=== PATIENT | female | born 1945 | race Caucasian/White ===

== ENCOUNTER 2018-02-24 14:18 | Day surgery (SDC) | payer MEDICARE, OTHER ==
[~2018-02-24 14:18] MED LIST: Lactated Ringers 1,000 ML IV SCH; Sodium Chloride 0.9% 10 ML Syringe FLUSH PRN
[2018-02-24] MEDS ORDERED: Midazolam 1 MG/ML 2 ML SDV ONE ×2 (15:29→15:35)
[2018-02-24] MEDS ORDERED: fentaNYL 100 MCG/2 ML SDV ONE ×2 (15:29→15:35)
[2018-02-24] MEDS ORDERED: Propofol 200 MG/20 ML SDV ONE ×2 (15:29→15:35)
--- NOTE | 2018-02-24 15:34 | PCM.PN ---
- General Info Date of Service: 02/24/18 - Review of Systems Systems Review Comment:: . 72-year-old female referred for EGD. She has a history of dysphasia over the last 2 weeks. She also has a long-standing history of acid reflux. She currently takes only Rolaids although in the past has taken Protonix which gave her much better control of her symptoms. She is medically stable to proceed today with no significant recent changes in her health status. Her recent history and physical is reviewed. I discussed the proposed upper endoscopy with the patient. She agrees to proceed accepting risks. We also discussed the possible need for balloon dilation of the esophagus and she agrees to this if necessary. - Patient Data Vitals - Most Recent: Last Vital Signs Temp 96.8 F 02/24/18 15:13 Pulse 75 02/24/18 15:13 Resp 20 02/24/18 15:13 BP 150/73 H 02/24/18 15:13 Pulse Ox 96 02/24/18 15:13 Weight - Most Recent: 98.883 kg Med Orders - Current: Current Medications Lactated Ringer's (Ringers, Lactated) 1,000 mls @ 125 mls/hr IV ASDIRECTED LOPEZ Last Admin: 02/24/18 15:08 Dose: 125 mls/hr Sodium Chloride (Saline Flush) 10 ml FLUSH ASDIRECTED PRN PRN Reason: Keep Vein Open - Problem List Review Problem List Initiated/Reviewed/Updated: Yes - Assessment Assessment:: Dysphasia - Plan Plan:: EGD
[2018-02-24] MEDS ORDERED: Ondansetron 4 MG/2 ML SDV ONE (15:35)
--- NOTE | 2018-02-24 16:09 | PCM.OPNOTE ---
- General Post-Op/Procedure Note Date of Surgery/Procedure: 02/24/18 Operative Procedure(s): EGD with Biopsy Findings: Large hiatal hernia Severe Reflux esophagitis with mid esophageal stricture-Suspect Avalos's Esophagus Pre Op Diagnosis: Dysphagia Post-Op Diagnosis: Hiatal hernia. Reflux esophagitis with esophageal stricture. Suspect Avalos's esophagus Anesthesia Technique: MAC Primary Surgeon: Epi Topete Pathology: Biopsies of esophagus Output, Urine Amount: 0 EBL in mLs: 5 Complications: None Condition: Good Free Text/Narrative:: Intake & Output 02/24/18 02/24/18 02/24/18 06:59 14:59 22:59 Intake Total 500 Balance 500
[2018-02-24 17:00] VITALS: BP 104/67
--- NOTE | 2018-02-25 08:10 | OR ---
Date of Procedure: 02/24/2018 PREOPERATIVE DIAGNOSIS: Dysphagia. POSTOPERATIVE DIAGNOSES: 1. Large hiatal hernia. 2. Severe reflux esophagitis with midesophageal stricture. 3. Suspect Avalos esophagus. OPERATION PERFORMED: Esophagogastroduodenoscopy with biopsy. INDICATIONS FOR SURGERY: This 72-year-old female has been having increasing symptoms of dysphagia over the past 2 weeks. She is referred for upper endoscopy. FINDINGS: The patient was noted to have severe reflux esophagitis with inflammation including ulceration and exudate in the midesophagus. There was also a moderately tight esophageal stricture in this region, although the scope was able to be passed through this stricture. The patient has a large hiatal hernia with Z-line estimated at 30 cm and the apex of the inflammation at 18 cm. Findings were consistent with a long segment Avalos esophagus. The stomach and duodenum otherwise appeared normal. DESCRIPTION OF PROCEDURE: The patient was taken to the operating room. She was given intravenous sedation, and her throat was topically anesthetized. The esophagus was intubated with the Olympus gastroscope. This was carefully advanced under direct visualization into the upper stomach. The inflammation was noted and stricture was identified. Carefully, the scope was advanced through this stricture with only minimal resistance. The scope was then carefully advanced down through the esophagus, stomach, and into the duodenum, where examination to the 3rd portion was performed. The duodenum was fully examined and then full examination of the stomach including retroflexed examination of the fundus was performed. The distal esophagus was carefully examined with findings as noted above. Biopsies were taken at various levels through the esophagus and in order to evaluate for possible Avalos esophagus and rule out dysplasia. Because of the intense inflammation in the area, dilation of the stricture was not performed in order to limit any chance of esophageal injury. The scope was removed and the patient was taken from the operating room in satisfactory condition. ESTIMATED BLOOD LOSS: 5 mL. COMPLICATIONS: None. PROGNOSIS: Good. TE Topete MD /[id number]
== END 2018-02-24 17:33 | disposition home or self-care (01) ==
LOC: LL.SDS 14:18
PROVIDERS: ATTEND Surgery
DX: K22.70 Barrett's esophagus without dysplasia (principal); K22.2 Esophageal obstruction; K44.9 Diaphragmatic hernia without obstruction or gangrene; K21.0 Gastro-esophageal reflux disease with esophagitis; I11.0 Hypertensive heart disease with heart failure; I50.9 Heart failure, unspecified; J44.9 Chronic obstructive pulmonary disease, unspecified; Z99.81 Dependence on supplemental oxygen; E66.9 Obesity, unspecified; Z87.891 Personal history of nicotine dependence; Z79.899 Other long term (current) drug therapy; Z88.0 Allergy status to penicillin; Z88.1 Allergy status to other antibiotic agents; Z91.040 Latex allergy status; Z91.048 Other nonmedicinal substance allergy status
CPT/HCPCS: 00731; 88305; J2250; J2405; J2704; J3010; J7120

== ENCOUNTER 2019-08-10 12:29 | Day surgery (SDC) | payer MEDICARE, OTHER ==
[~2019-08-10 12:29] MED LIST changes: -Lactated Ringers 1,000 ML IV SCH; +Midazolam 1 MG/ML 2 ML SDV ONE; +Propofol 200 MG/20 ML SDV ONE
[2019-08-10] MEDS: Lactated Ringers 1,000 ML IV SCH (13:12)
[2019-08-10] MEDS: Albuterol/Ipratropium 3.0-0.5 MG/3 ML Neb Soln NEB ONE (14:29)
--- NOTE | 2019-08-10 14:32 | PCM.PN ---
- General Info Date of Service: 08/10/19 - Review of Systems Systems Review Comment:: 74-year-old female with recently diagnosed long segment Avalos's esophagus comes today for follow-up upper endoscopy. She was noted to have a stricture at the last time of her EGD. She admits that she has not been taking her medication her acid blocking medication faithfully. The proposed upper endoscopy is discussed with the patient. Possible dilation is also reviewed. She agrees to proceed accepting risks. - Patient Data Vitals - Most Recent: Last Vital Signs Temp 97.6 F 08/10/19 12:48 Pulse 95 08/10/19 12:48 Resp 20 08/10/19 12:48 BP 125/77 08/10/19 12:48 Pulse Ox 93 L 08/10/19 12:48 Weight - Most Recent: 111.13 kg Med Orders - Current: Current Medications Lactated Ringer's (Ringers, Lactated) 1,000 mls @ 125 mls/hr IV ASDIRECTED LOPEZ Last Admin: 08/10/19 13:12 Dose: 125 mls/hr Sodium Chloride (Saline Flush) 10 ml FLUSH ASDIRECTED PRN PRN Reason: Keep Vein Open Discontinued Medications Albuterol/Ipratropium (Duoneb 3.0-0.5 Mg/3 Ml) 3 ml NEB ONETIME ONE Stop: 08/10/19 14:19 Midazolam HCl (Versed 1 Mg/Ml) Confirm Administered Dose 2 mg .ROUTE .STK-MED ONE Stop: 08/10/19 08:33 Propofol (Diprivan 20 Ml) Confirm Administered Dose 200 mg .ROUTE .STK-MED ONE Stop: 08/10/19 08:34 - Problem List Review Problem List Initiated/Reviewed/Updated: Yes - Assessment Assessment:: Avalos's Esophagus with dysphagia - Plan Plan:: EGD with possible dilation
[2019-08-10] MEDS ORDERED: Propofol 200 MG/20 ML SDV ONE (14:54)
[2019-08-10] MEDS ORDERED: Midazolam 1 MG/ML 2 ML SDV ONE (14:54)
--- NOTE | 2019-08-10 15:01 | PCM.OPNOTE ---
- General Post-Op/Procedure Note Date of Surgery/Procedure: 08/10/19 Operative Procedure(s): EGD with balloon dilation of esophagus Findings: hiatal hernia with long segment of Avalos's Esophagus and upper esophageal stricture Pre Op Diagnosis: Avalos's Esophagus. Dysphagia Post-Op Diagnosis: Hiatal Hernia. Avalos's esophagus. Esophageal stricture Anesthesia Technique: MAC Primary Surgeon: Epi Topete Pathology: none EBL in mLs: 5 Complications: None Condition: Good
[2019-08-10 15:29] VITALS: BP 115/60; PULSE 86
--- NOTE | 2019-08-10 21:30 | OR ---
Date of Procedure: 08/10/2019 PREOPERATIVE DIAGNOSIS: Dysphagia with history of Avalos's esophagus. POSTOPERATIVE DIAGNOSES: Hiatal hernia, Avalos's esophagus, and upper esophageal stricture. OPERATION PERFORMED: Esophagogastroduodenoscopy with balloon dilation of esophageal stricture. INDICATIONS FOR SURGERY: This 74-year-old female has a known history of Avalos's esophagus and has been having symptoms of dysphagia. FINDINGS: This patient has a long segment of Avalos's esophagus, which extends from the Z-line at the 30 cm level up to approximately the 24 cm level where a moderate-sized stricture is noted in the esophagus. The patient also has a large hiatal hernia. No nodularity is seen in the area of the Avalos's esophagus. DESCRIPTION OF PROCEDURE: The patient was taken to the operating room. She was given intravenous sedation and with her in the left lateral decubitus position, the Olympus gastroscope was advanced through the mouth guard into the patient's oropharynx. The scope was then carefully advanced down through the cricopharyngeus under direct visualization and then advanced through the esophagus where it passed through the stricture and into the stomach and duodenum where examination to the third portion was performed. Examination of the duodenum was performed and also of the stomach including retroflexed examination of the fundus. With the patient's symptoms, dilation of her stricture is felt indicated and so through the scope a dilating balloon was selected with a maximum dilation diameter of 54-Armenian, it was 8 x 18 cm balloon. This was then advanced and the stricture was sequentially dilated first to 1.8 atmospheres and then to 2.6 atmospheres. Full dilation was not performed larger than this in order to reduce the risk of esophageal injury. The balloon was then removed and inspection of the area of stricturing showed improvement. Moderate amount of heme was achieved with the dilation procedure, but no indication of esophageal injury was identified. The patient tolerated the procedure well. The scope was removed and she left the operating room in satisfactory condition. ESTIMATED BLOOD LOSS: 5 mL. COMPLICATIONS: None. PROGNOSIS: Good. TE Topete MD /[id number]
== END 2019-08-10 16:00 | disposition home or self-care (01) ==
LOC: LL.SDS 12:29
PROVIDERS: ATTEND Surgery
DX: K22.2 Esophageal obstruction (principal); K22.70 Barrett's esophagus without dysplasia; K44.9 Diaphragmatic hernia without obstruction or gangrene; K21.9 Gastro-esophageal reflux disease without esophagitis; I11.0 Hypertensive heart disease with heart failure; I50.9 Heart failure, unspecified; J44.9 Chronic obstructive pulmonary disease, unspecified; Z88.0 Allergy status to penicillin; Z91.040 Latex allergy status; Z91.048 Other nonmedicinal substance allergy status; Z99.81 Dependence on supplemental oxygen; Z79.899 Other long term (current) drug therapy
CPT/HCPCS: 00731; J2250; J2704; J7120; J7620-GY

== ENCOUNTER 2020-01-25 09:06 | Day surgery (SDC) | payer MEDICARE, OTHER ==
[~2020-01-25 09:06] MED LIST changes: -Midazolam 1 MG/ML 2 ML SDV ONE; -Sodium Chloride 0.9% 10 ML Syringe FLUSH PRN
[2020-01-25] MEDS ORDERED: Sodium Chloride 0.9% 10 ML Syringe FLUSH PRN (09:15)
[2020-01-25] MEDS ORDERED: Lactated Ringers 1,000 ML IV SCH (09:15)
[2020-01-25] MEDS ORDERED: Propofol 200 MG/20 ML SDV ONE ×2 (10:26→11:22)
[2020-01-25] MEDS ORDERED: Lidocaine 2% 100 MG/5 ML Syringe ONE (10:26)
--- NOTE | 2020-01-25 10:29 | PCM.PN ---
- General Info Date of Service: 01/25/20 - Review of Systems Systems Review Comment:: 74-year-old female with history of Avalos's esophagus here for surveillance upper endoscopy. She is also scheduled for screening colonoscopy today. She is medically stable to proceed today. Her recent history and physical is reviewed and no significant changes are noted. I have discussed the proposed upper and lower endoscopy with the patient. She understands indications and risks and agrees to proceed. - Patient Data Vitals - Most Recent: Last Vital Signs Temp 97.5 F 01/25/20 10:18 Pulse 91 01/25/20 10:18 Resp 18 01/25/20 10:18 BP 120/64 01/25/20 10:18 Pulse Ox 91 L 01/25/20 10:18 Weight - Most Recent: 99.79 kg Med Orders - Current: Current Medications Lactated Ringer's (Ringers, Lactated) 1,000 mls @ 125 mls/hr IV ASDIRECTED LOPEZ Last Admin: 01/25/20 10:07 Dose: 125 mls/hr Sodium Chloride (Saline Flush) 10 ml FLUSH ASDIRECTED PRN PRN Reason: Keep Vein Open Discontinued Medications Propofol (Diprivan 20 Ml) Confirm Administered Dose 400 mg .ROUTE .STK-MED ONE Stop: 01/25/20 08:47 Sepsis Event Note - Focused Exam Vital Signs: Vital Signs Temp Pulse Resp BP Pulse Ox 01/25/20 10:18 97.5 F 91 18 120/64 91 L Date Exam was Performed: 01/25/20 Time Exam was Performed: 10:28 - Problem List Review Problem List Initiated/Reviewed/Updated: Yes - My Orders Last 24 Hours: My Active Orders 01/25/20 09:15 Patient Status [ADT] Routine Peripheral IV Care [RC] . DIRECTED Verify Patient Consent Obtain [RC] ASDIRECTED Lactated Ringers [Ringers, Lactated] 1,000 ml IV ASDIRECTED Sodium Chloride 0.9% [Saline Flush] 10 ml FLUSH ASDIRECTED PRN Peripheral IV Insertion Adult [OM.PC] Routine - Assessment Assessment:: history of Avalos's esophagus Colon cancer screening - Plan Plan:: EGD and colonoscopy
--- NOTE | 2020-01-25 11:24 | PCM.OPNOTE ---
- General Post-Op/Procedure Note Date of Surgery/Procedure: 01/25/20 Operative Procedure(s): EGD with Biopsy and Colonoscopy with Polypectomy Findings: Long Segment Avalos's Esophagus with inflammation but without mass Multiple colon polyps Pre Op Diagnosis: History of Avalos's Esophagus. Colon Cancer Screening Post-Op Diagnosis: Avalos's Esophagus. Hiatal Hernia. Colon Polyps Anesthesia Technique: MAC Primary Surgeon: Epi Topete Pathology: Biopsies of Avalos's Esophagus Colon Polyps EBL in mLs: 5 Complications: None Condition: Good
--- NOTE | 2020-01-25 13:09 | OR ---
Date of Procedure: 01/25/2020 PREOPERATIVE DIAGNOSIS: History of Avalos's esophagus and colon cancer screening. POSTOPERATIVE DIAGNOSIS: Long segment Avalos's esophagus, hiatal hernia, and colon polyps. OPERATION PERFORMED: 1. Esophagogastroduodenoscopy with biopsy. 2. Colonoscopy with polypectomy. INDICATIONS FOR SURGERY: This 74-year-old female has a known history of Avalos's esophagus and comes today for surveillance upper endoscopy. She also comes for screening colonoscopy. FINDINGS: On upper endoscopy, the patient has what appears to be long segment Avalos's esophagus. Visible esophageal changes consistent with this are noted from approximately the 32 to the 25 cm level. There is visible hyperemia and some inflammation in this area, although no mass effect or exudate is noted. The esophagus above this level appears normal. No stenosis is identified on today's exam. The patient does have a moderate-sized hiatal hernia approximately 5 cm in length. The mucosa here and the rest of the stomach as well as in the duodenum appears normal. On colonoscopy, the patient has 3 polyps; a sessile 1-cm polyp in the sigmoid colon 35 cm from the anal verge, a 7- mm sessile polyp in the transverse colon, and a 5-mm sessile polyp in the cecum. The colon otherwise appears normal. DESCRIPTION OF PROCEDURE: The patient was taken to the operating room. She was given intravenous sedation, and with her in the left lateral decubitus position, the Olympus gastroscope was advanced into the mouth through a mouth guard. The scope was carefully advanced down into the esophagus and then advanced through the esophagus, stomach and into the duodenum, where examination to the third portion was performed. After carefully examining the duodenum, the scope was withdrawn back into the stomach where full examination including retroflexed examination of the fundus was performed. The distal esophagus was examined with findings as described above. Biopsies were taken at multiple levels through the area of the Avalos's esophagus to rule out any dysplasia. The examination was then completed and the scope was removed. Attention was turned to colonoscopy. Digital rectal exam was performed showing no rectal masses. The Olympus colonoscope was inserted into the rectum. Retroflexed examination of the rectal canal was performed. The scope was then carefully advanced under direct visualization through the entire length of the colon until the cecum was reached. In the cecum, the above-described cecal polyp was identified. This was removed with a cautery snare and retrieved into a polyp trap. The cecum was then carefully examined and then the scope was withdrawn, sequentially re-examining the colonic segments. During insertion and withdrawal of the scope, the other above described polyps were identified, and as they were noted, they were removed with cautery snare and both retrieved. After the colon and rectum had been completely examined, and with no sign of bleeding or any other complication, the scope was removed and the patient was taken from the operating room in satisfactory condition. ESTIMATED BLOOD LOSS: 5 mL. COMPLICATIONS: None. PROGNOSIS: Good. TE Topete MD /[id number]
[2020-01-25 15:22] VITALS: BP 107/62; PULSE 73
== END 2020-01-25 12:25 | disposition home or self-care (01) ==
LOC: LL.SDS 09:06
PROVIDERS: ATTEND Surgery
DX: Z12.11 Encounter for screening for malignant neoplasm of colon (principal); K22.70 Barrett's esophagus without dysplasia; D12.0 Benign neoplasm of cecum; D12.3 Benign neoplasm of transverse colon; K44.9 Diaphragmatic hernia without obstruction or gangrene; J44.9 Chronic obstructive pulmonary disease, unspecified; I10 Essential (primary) hypertension; Z79.899 Other long term (current) drug therapy; Z88.0 Allergy status to penicillin; Z88.8 Allergy status to other drugs, medicaments and biological substances; Z91.040 Latex allergy status; Z87.891 Personal history of nicotine dependence
CPT/HCPCS: 88305; J2001; J2704; J7120

== ENCOUNTER 2021-10-30 17:23 | Inpatient (IN) | payer MEDICARE, OTHER ==
[2021-10-30] MEDS ORDERED: Benzonatate 100 MG Cap PO PRN (18:06)
[2021-10-30] MEDS ORDERED: Ondansetron 4 MG Tab.DIS PO PRN (18:09)
[2021-10-30] MEDS ORDERED: Acetaminophen 325 MG Tab PO PRN (18:09)
[2021-10-30] MEDS ORDERED: Loperamide 2 MG Tab PO PRN (18:31)
--- NOTE | 2021-10-30 18:32 | PCM.HP.2 ---
H&P History of Present Illness - General Date of Service: 10/30/21 Admit Problem/Dx: 1)COVID 19 2)Hypoxemia Source of Information: Patient - History of Present Illness Initial Comments - Free Text/Narative: Estee is a 76 y/o female who had contacted the [facility] today and Janie Lr PA-C had ordered outpatient COVID testing. Her test came back positive and she was sent to the hospital by her PCP for MAB infusion. On arrival to the hospital, she was weak and very SOB, nursing reported that her sat was 79% on RA. Patient reports being sick for a week with mild cough and diarrhea. The diarrhea has actually been more of an issue and she has been having multiple stools every day for the last 7 days. No fever. She does have home oxygen that uses prn and only at 2 liters. She has not been using that at home. Her also tested positive today for COVID. - Related Data Allergies/Adverse Reactions: Allergies Allergy/AdvReac Type Severity Reaction Status Date / Time amoxicillin Allergy Anaphylactic Verified 10/30/21 17:51 Shock aspirin Allergy GI Verified 10/30/21 17:51 Intolerance/Diarrhea cephalexin monohydrate Allergy Hives Verified 10/30/21 17:51 [From Keflex] erythromycin base Allergy Rash Verified 10/30/21 17:51 Latex, Natural Rubber Allergy Rash Verified 10/30/21 17:51 Penicillins Allergy Anaphylactic Verified 10/30/21 17:51 Shock sulfamethoxazole Allergy Rash Verified 10/30/21 17:51 [From Bactrim] trimethoprim [From Bactrim] Allergy Rash Verified 10/30/21 17:51 bandaids Allergy Itching Uncoded 10/30/21 17:51 tape Allergy Rash Uncoded 10/30/21 17:51 Home Medications: Home Meds Furosemide 40 mg PO DAILY 04/21/16 [History] Lisinopril 2.5 mg PO DAILY 04/21/16 [History] Metoprolol Succinate [Toprol XL] 12.5 mg PO BEDTIME 04/21/16 [History] Albuterol/Ipratropium [DuoNeb 3.0-0.5 MG/3 ML] 3 ml INH BID 02/23/18 [History] Arformoterol [Brovana] 15 mcg INH BID 02/23/18 [History] Omeprazole 40 mg PO DAILY 08/10/19 [History] Benzonatate [Tessalon Perle] 200 mg PO BID PRN 01/25/20 [History] Indomethacin [Indocin] 50 mg PO TID PRN 01/25/20 [History] Potassium Chloride [Klor-Con 10] 20 meq PO BID 01/25/20 [History] Promethazine HCl/Codeine [Prometh-Codein 6.25-10 mg/5 ml] 5 ml PO Q4H PRN 01/25/20 [History] Past Medical History HEENT History: Reports: Cataract, Impaired Vision Other HEENT History: has glasses Cardiovascular History: Reports: Heart Failure, Hypertension Respiratory History: Reports: COPD, Other (See Below) Other Respiratory History: home O2 use Gastrointestinal History: Reports: GERD Other Gastrointestinal History: Severe reflux esophagitis. mild esophageal stricture. Large hiatal hernia. Suspect Avalos's esophagus Genitourinary History: Reports: None [employer] History: Reports: Musculoskeletal History: Reports: Arthritis Neurological History: Reports: None Psychiatric History: Reports: None Endocrine/Metabolic History: Reports: Obesity/BMI 30+ Hematologic History: Reports: None Immunologic History: Reports: None Oncologic (Cancer) History: Reports: None Dermatologic History: Reports: None - Past Surgical History GI Surgical History: Reports: EGD, Esophageal Dilatation Social & Family History - Family History Family Medical History: No Pertinent Family History - Caffeine Use Caffeine Use: Reports: None H&P Review of Systems - Review of Systems: Review Of Systems: See Below General: Reports: Malaise, Weakness, Fatigue HEENT: Reports: No Symptoms Pulmonary: Reports: Shortness of Breath, Cough Cardiovascular: Reports: No Symptoms Gastrointestinal: Reports: Diarrhea, Nausea Genitourinary: Reports: No Symptoms Musculoskeletal: Reports: No Symptoms Skin: Reports: No Symptoms Psychiatric: Reports: No Symptoms Neurological: Reports: No Symptoms Hematologic/Lymphatic: Reports: No Symptoms Immunologic: Reports: No Symptoms Exam - Exam Exam: See Below - Exam Quality Assessment: Supplemental Oxygen General: Alert, Oriented (Elderly female, looks better now that she is sitting on the bed and has oxygen on.) HEENT: Conjunctiva Clear, Hearing Intact, Mucosa Moist & [place], Nares Patent, Posterior Pharynx Clear Neck: Supple, Trachea Midline Lungs: Normal Respiratory Effort, Decreased Breath Sounds, Crackles (Scattered crackles noted in the bases) Cardiovascular: Regular Rate, Regular Rhythm, Normal S1, Normal S2 GI/Abdominal Exam: Normal Bowel Sounds, Soft, Non-Tender (Female) Exam: Deferred Rectal (Female) Exam: Deferred Back Exam: Normal Inspection Extremities: Normal Inspection, Normal Range of Motion, No Pedal Edema, Normal Capillary Refill Skin: Warm, Dry, Intact Neurological: Cranial Nerves Intact Neuro Extensive - Mental Status: Alert, Oriented x3, Normal Mood/Affect, Normal Cognition, Memory Intact Neuro Extensive - Motor, Sensory, Reflexes: CN II-XII Intact, Normal Gait - Patient Data Result Diagrams: 10/30/21 18:01 Imaging Impressions Last 24 hrs: CXR=note bilateral lower lobe consolidations developing (See final report) #1 Interpretation EKG Date: 10/30/21 Time: 19:10 Rhythm: NSR Rate (Beats/Min): 73 [place]: Normal P-Wave: Present QRS: Normal ST-T: Normal QT: Normal EKG Interpretation Comments: NSR - Problem List (1) COVID-19 SNOMED Code(s): 894606134 ICD Code: U07.1 - COVID-19 Status: Acute Current Visit: Yes Problem Details: +COVID test today, Day #7 of sx for her. Remdesivir ordered. Also started Lovenox and Decadron. Will continue her Brovana, but increase her Duonebs to q 4 hr. Blood Cx ordered. Lactic Acid neg, AST=43 most likely elevated due to COVID. CRP=5.2. (2) COPD (chronic obstructive pulmonary disease) SNOMED Code(s): 50938073 ICD Code: J44.9 - CHRONIC OBSTRUCTIVE PULMONARY DISEASE, UNSPECIFIED Status: Chronic Priority: High Current Visit: No Problem Details: Has home oxygen for prn use, but has not required it continuously Currently on 4 liters of oxygen to maintain sats. Qualifiers: COPD type: unspecified COPD Qualified Code(s): J44.9 - Chronic obstructive pulmonary disease, unspecified (3) Hypertension SNOMED Code(s): 55512034 ICD Code: I10 - ESSENTIAL (PRIMARY) HYPERTENSION Status: Chronic Priority: Medium Current Visit: No Problem Details: Continue Metoprolol and Lisinopril. Will monitor BPs. (4) Diarrhea due to COVID-19 SNOMED Code(s): 211456832 ICD Code: U07.1 - COVID-19; A08.39 - OTHER VIRAL ENTERITIS Status: Acute Current Visit: Yes Problem Details: Will monitor. Immodium ordered. (5) Hypokalemia SNOMED Code(s): 18071556 ICD Code: E87.6 - HYPOKALEMIA Status: Acute Current Visit: Yes (6) Hypokalemia SNOMED Code(s): 70812397 ICD Code: E87.6 - HYPOKALEMIA Status: Acute Current Visit: Yes Problem Details: K=3.3, currently on Potassium 20 mEq po BID, will given 1 time dose of 40 mEq and recheck in the AM. (7) Elevated d-dimer SNOMED Code(s): 091078113 ICD Code: R79.89 - OTHER SPECIFIED ABNORMAL FINDINGS OF BLOOD CHEMISTRY Status: Acute Current Visit: Yes Problem Details: Hx of elevated D Dimer, but in light of COVID+ status will obtain CTA Chest to exclude PE. Problem List Initiated/Reviewed/Updated: Yes Orders Last 24hrs: Active Orders 24 hr Category Date Time Status EKG Documentation Completion [RC] STAT Care 10/30/21 17:33 Ordered Nurse Communication: Isolation [RC] ASDIRECTED Care 10/30/21 17:34 Ordered Chest 1V Frontal [CR] Routine Exams 10/30/21 17:33 Ordered BLOOD GAS ARTERIAL [BG] Stat Lab 10/30/21 17:33 Ordered C-REACTIVE PROTEIN [CHEM] Stat Lab 10/30/21 17:33 Ordered COMPREHENSIVE METABOLIC PN,CMP [CHEM] Stat Lab 10/30/21 17:32 Ordered CULTURE BLOOD [BC] Stat Lab 10/30/21 17:34 Ordered CULTURE BLOOD [BC] Stat Lab 10/30/21 17:34 Ordered D-DIMER QUANTITATIVE [COAG] Stat Lab 10/30/21 17:33 Ordered INR,PT,PROTHROMBIN TIME [COAG] Stat Lab 10/30/21 17:33 Ordered LACTIC ACID [CHEM] Stat Lab 10/30/21 17:33 Ordered MAGNESIUM [CHEM] Stat Lab 10/30/21 17:33 Ordered PTT,PARTIAL THROMBOPLSTIN TIME [COAG] Stat Lab 10/30/21 17:33 Ordered TROPONIN I HIGH SENSITIVITY [CHEM] Stat Lab 10/30/21 17:33 Ordered TSH ULTRASENSITIVE [CHEM] Stat Lab 10/30/21 17:33 Ordered Blood Culture x2 Reflex Set [OM.PC] Stat Oth 10/30/21 17:33 Ordered Isolation [COMM] Routine Oth 10/30/21 17:33 Ordered Saline Lock Insert [OM.PC] Stat Oth 10/30/21 17:33 Ordered Assessment/Plan Comment:: As above
[2021-10-30 18:35] LABS: PTT,PARTIAL THROMBOPLSTIN TIME 29.4 SEC (23.6-29.8)
[2021-10-30 19:04] LABS: ANION GAP 13.9 meq/L (7-15)
[2021-10-30] MEDS ORDERED: Indomethacin 25 MG Cap PO PRN (19:08)
[2021-10-30 19:16] LABS: O2 DELIVERY DEVICE NASAL CANNULA
[2021-10-30 19:17] LABS: BASE EXCESS VENOUS 3 mmol/L ((-2)-3); BICARBONATE,VENOUS 27 mmol/L (23-28); O2 FLOW RATE 4 L/min; O2 SATURATION VENOUS 77 %; PCO2 VENOUS 42 mmHG (41-51); PH,VENOUS 7.42 (7.31-7.41); PO2 VENOUS 41 mmHG
[2021-10-30] MEDS ORDERED: Potassium Chloride 20 MEQ Tab.ER PO ONE (19:38)
[2021-10-30] MEDS: Dexamethasone 2 MG Tab PO SCH (19:41)
[2021-10-30] MEDS: Albuterol/Ipratropium 3.0-0.5 MG/3 ML Neb Soln INH SCH ×2 (19:42→23:28)
[2021-10-30] MEDS ORDERED: REMDESIVIR 200 MG in Sodium Chloride 0.9% 250 ML IV ONE (20:00)
[2021-10-30] MEDS ORDERED: Metoprolol Succinate 25 MG Tab.ER PO SCH (20:00)
[2021-10-30] MEDS ORDERED: Iopamidol 755 Mg/ML 100 ML Bottle IVPUSH STA (20:02)
[2021-10-30] MEDS: Enoxaparin 40 MG/0.4 ML Syringe SUBCUT SCH (21:23)
[2021-10-30] MEDS ORDERED: Potassium Chloride 20 MEQ Tab.ER ONE (23:12)
[2021-10-31] MEDS: Albuterol/Ipratropium 3.0-0.5 MG/3 ML Neb Soln INH SCH ×4 (05:02→15:16)
[2021-10-31] MEDS ORDERED: Omeprazole 20 MG Cap.CR PO SCH (07:30)
[2021-10-31] MEDS: Enoxaparin 40 MG/0.4 ML Syringe SUBCUT SCH (07:56)
[2021-10-31] MEDS: Dexamethasone 2 MG Tab PO SCH (07:56)
[2021-10-31] MEDS ORDERED: Potassium Chloride 10 MEQ Tab.ER PO SCH (08:00)
[2021-10-31] MEDS ORDERED: Arformoterol 15 MCG/2 ML Neb Soln INH SCH (08:00)
[2021-10-31] MEDS ORDERED: Lisinopril 5 MG Tab PO SCH (08:00)
[2021-10-31] MEDS ORDERED: Furosemide 40 MG Tab PO SCH (08:00)
[2021-10-31 08:01] LABS: ANION GAP 11.7 meq/L (7-15)
--- NOTE | 2021-10-31 09:49 | PCM.PN ---
- General Info Date of Service: 10/31/21 Admission Dx/Problem (Free Text): 1)COVID 19 2)Hypoxemia Subjective Update: Patient has done very well overnight. She is currently at 2 liters of oxygen and maintaining sats in brigette 94-95% range. No fevers. She overall feels very well. Reports already feeling much better than she did yesterday. She is anxious to go home today. Appetite good and she is using incentive spirometry. - Review of Systems General: Reports: No Symptoms HEENT: Reports: No Symptoms Pulmonary: Reports: Shortness of Breath, Cough Cardiovascular: Reports: No Symptoms Gastrointestinal: Reports: No Symptoms Genitourinary: Reports: No Symptoms Musculoskeletal: Reports: No Symptoms Skin: Reports: No Symptoms Neurological: Reports: No Symptoms Psychiatric: Reports: No Symptoms - Patient Data Vitals - Most Recent: Last Vital Signs Temp 36.6 C 10/31/21 04:00 Pulse 84 10/31/21 07:59 Resp 20 10/31/21 07:59 BP 100/79 10/31/21 07:59 Pulse Ox 95 10/31/21 07:59 Weight - Most Recent: 99.79 kg I&O - Last 24 Hours: Intake & Output 10/30/21 10/31/21 10/31/21 22:59 06:59 14:59 Intake Total 590 Balance 590 Lab Results Last 24 Hours: Laboratory Results - last 24 hr 10/30/21 10/30/21 10/30/21 Range/Units 18:01 18:01 18:01 WBC (4.0-10.2) K/uL RBC (3.77-5.09) M/uL Hgb (11.7-15.5) g/dL Hct (34.0-46.0) % MCV (84.0-98.0) fL MCH (28.2-33.3) pg MCHC (31.7-36.0) g/dL RDW (11.2-14.1) % Plt Count (150-350) K/uL Neut % (Auto) (45.0-80.0) % Lymph % (Auto) (10.0-50.0) % [place] % (Auto) (2.0-14.0) % Eos % (Auto) (0.0-5.0) % Baso % (Auto) (0.0-2.0) % Neut # (Auto) (1.40-7.00) K/uL Lymph # (Auto) (0.50-3.50) K/uL [place] # (Auto) (0.00-1.00) K/uL Eos # (Auto) (0.00-0.50) K/uL Baso # (Auto) (0.00-0.20) K/uL PT 10.2 (9.6-11.3) SEC INR 1.0 APTT 29.4 (23.6-29.8) SEC D-Dimer, Quantitative 544 H (0-400) ng/mL VBG pH (7.31-7.41) VBG pCO2 (41-51) mmHG VBG pO2 mmHG VBG HCO3 (23-28) mmol/L VBG Total CO2 mmol/L VBG O2 Saturation % VBG Base Excess ((-2)-3) mmol/L O2 Delivery Device Oxygen Flow Rate L/min Sodium 136 (136-145) mmol/L Potassium 3.3 L (3.5-5.1) mmol/L Chloride 98 (98-107) mmol/L Carbon Dioxide 27.4 (21.0-32.0) mmol/L Anion Gap 13.9 (7-15) meq/L BUN 33 H (7-18) mg/dL Creatinine 1.28 H (0.51-1.17) mg/dL Est Cr Clr Drug Dosing 29.11 mL/min Estimated GFR (MDRD) 40 mL/min Glucose 92 (70-99) mg/dL Lactic Acid (0.4-2.0) mmol/L Calcium 9.0 (8.5-10.1) mg/dL Magnesium 1.8 (1.8-2.4) mg/dL Total Bilirubin 0.9 (0.2-1.0) mg/dL Direct Bilirubin (0.0-0.2) mg/dL AST 43 H (15-37) U/L ALT 45 (12-78) U/L Alkaline Phosphatase 69 (46-116) IU/L Troponin I High Sens 14 (<=51) ng/L C-Reactive Protein 5.2 H (<=0.9) mg/dL Total Protein 6.2 L (6.4-8.2) g/dL Albumin 3.0 L (3.4-5.0) g/dL TSH, Ultra Sensitive 2.188 (0.358-3.740) mIU/mL Specimen Type Urine Color Urine Appearance Urine pH (5.0-9.0) Ur Specific [place] (1.005-1.030) Urine Protein (NEGATIVE) mg/dL Urine Glucose (UA) (NEGATIVE) mg/dL Urine Ketones (NEGATIVE) mg/dL Urine Occult Blood (NEGATIVE) Urine Nitrite (NEGATIVE) Urine Bilirubin (NEGATIVE) Urine Urobilinogen (0.2-1.0) E.U./dL Ur Leukocyte Esterase (NEGATIVE) Urine RBC /HPF Urine WBC /HPF Ur Epithelial Cells /LPF Urine Bacteria (NONE TO FEW) /HPF 10/30/21 10/30/21 10/30/21 Range/Units 18:01 18:01 19:00 WBC (4.0-10.2) K/uL RBC (3.77-5.09) M/uL Hgb (11.7-15.5) g/dL Hct (34.0-46.0) % MCV (84.0-98.0) fL MCH (28.2-33.3) pg MCHC (31.7-36.0) g/dL RDW (11.2-14.1) % Plt Count (150-350) K/uL Neut % (Auto) (45.0-80.0) % Lymph % (Auto) (10.0-50.0) % [place] % (Auto) (2.0-14.0) % Eos % (Auto) (0.0-5.0) % Baso % (Auto) (0.0-2.0) % Neut # (Auto) (1.40-7.00) K/uL Lymph # (Auto) (0.50-3.50) K/uL [place] # (Auto) (0.00-1.00) K/uL Eos # (Auto) (0.00-0.50) K/uL Baso # (Auto) (0.00-0.20) K/uL PT (9.6-11.3) SEC INR APTT (23.6-29.8) SEC D-Dimer, Quantitative (0-400) ng/mL VBG pH 7.42 H (7.31-7.41) VBG pCO2 42 (41-51) mmHG VBG pO2 41 mmHG VBG HCO3 27 (23-28) mmol/L VBG Total CO2 28 mmol/L VBG O2 Saturation 77 % VBG Base Excess 3 ((-2)-3) mmol/L O2 Delivery Device Nasal cannula Oxygen Flow Rate 4 L/min Sodium (136-145) mmol/L Potassium (3.5-5.1) mmol/L Chloride (98-107) mmol/L Carbon Dioxide (21.0-32.0) mmol/L Anion Gap (7-15) meq/L BUN (7-18) mg/dL Creatinine (0.51-1.17) mg/dL Est Cr Clr Drug Dosing mL/min Estimated GFR (MDRD) mL/min Glucose (70-99) mg/dL Lactic Acid 1.1 (0.4-2.0) mmol/L Calcium (8.5-10.1) mg/dL Magnesium (1.8-2.4) mg/dL Total Bilirubin (0.2-1.0) mg/dL Direct Bilirubin 0.3 H (0.0-0.2) mg/dL AST (15-37) U/L ALT (12-78) U/L Alkaline Phosphatase (46-116) IU/L Troponin I High Sens (<=51) ng/L C-Reactive Protein (<=0.9) mg/dL Total Protein (6.4-8.2) g/dL Albumin (3.4-5.0) g/dL TSH, Ultra Sensitive (0.358-3.740) mIU/mL Specimen Type Urine Color Urine Appearance Urine pH (5.0-9.0) Ur Specific [place] (1.005-1.030) Urine Protein (NEGATIVE) mg/dL Urine Glucose (UA) (NEGATIVE) mg/dL Urine Ketones (NEGATIVE) mg/dL Urine Occult Blood (NEGATIVE) Urine Nitrite (NEGATIVE) Urine Bilirubin (NEGATIVE) Urine Urobilinogen (0.2-1.0) E.U./dL Ur Leukocyte Esterase (NEGATIVE) Urine RBC /HPF Urine WBC /HPF Ur Epithelial Cells /LPF Urine Bacteria (NONE TO FEW) /HPF 10/30/21 10/31/21 10/31/21 Range/Units 21:15 07:29 07:29 WBC 4.2 (4.0-10.2) K/uL RBC 4.53 (3.77-5.09) M/uL Hgb 13.6 (11.7-15.5) g/dL Hct 39.4 (34.0-46.0) % MCV 87.0 D (84.0-98.0) fL MCH 30.0 (28.2-33.3) pg MCHC 34.5 (31.7-36.0) g/dL RDW 15.7 H (11.2-14.1) % Plt Count 211 (150-350) K/uL Neut % (Auto) 76.2 (45.0-80.0) % Lymph % (Auto) 17.9 (10.0-50.0) % [place] % (Auto) 5.7 (2.0-14.0) % Eos % (Auto) 0.0 (0.0-5.0) % Baso % (Auto) 0.2 (0.0-2.0) % Neut # (Auto) 3.19 (1.40-7.00) K/uL Lymph # (Auto) 0.75 (0.50-3.50) K/uL [place] # (Auto) 0.24 (0.00-1.00) K/uL Eos # (Auto) 0.00 (0.00-0.50) K/uL Baso # (Auto) 0.01 (0.00-0.20) K/uL PT (9.6-11.3) SEC INR APTT (23.6-29.8) SEC D-Dimer, Quantitative (0-400) ng/mL VBG pH (7.31-7.41) VBG pCO2 (41-51) mmHG VBG pO2 mmHG VBG HCO3 (23-28) mmol/L VBG Total CO2 mmol/L VBG O2 Saturation % VBG Base Excess ((-2)-3) mmol/L O2 Delivery Device Oxygen Flow Rate L/min Sodium (136-145) mmol/L Potassium (3.5-5.1) mmol/L Chloride (98-107) mmol/L Carbon Dioxide (21.0-32.0) mmol/L Anion Gap (7-15) meq/L BUN (7-18) mg/dL Creatinine (0.51-1.17) mg/dL Est Cr Clr Drug Dosing mL/min Estimated GFR (MDRD) mL/min Glucose (70-99) mg/dL Lactic Acid (0.4-2.0) mmol/L Calcium (8.5-10.1) mg/dL Magnesium (1.8-2.4) mg/dL Total Bilirubin (0.2-1.0) mg/dL Direct Bilirubin 0.3 H (0.0-0.2) mg/dL AST (15-37) U/L ALT (12-78) U/L Alkaline Phosphatase (46-116) IU/L Troponin I High Sens (<=51) ng/L C-Reactive Protein (<=0.9) mg/dL Total Protein (6.4-8.2) g/dL Albumin (3.4-5.0) g/dL TSH, Ultra Sensitive (0.358-3.740) mIU/mL Specimen Type Urincc Urine Color Yellow Urine Appearance Slightly cloudy Urine pH 5.5 (5.0-9.0) Ur Specific [place] <= 1.005 (1.005-1.030) Urine Protein Negative (NEGATIVE) mg/dL Urine Glucose (UA) Negative (NEGATIVE) mg/dL Urine Ketones Negative (NEGATIVE) mg/dL Urine Occult Blood Negative (NEGATIVE) Urine Nitrite Negative (NEGATIVE) Urine Bilirubin Negative (NEGATIVE) Urine Urobilinogen 0.2 (0.2-1.0) E.U./dL Ur Leukocyte Esterase Trace H (NEGATIVE) Urine RBC 0-5 /HPF Urine WBC 0-5 /HPF Ur Epithelial Cells Rare /LPF Urine Bacteria Moderate H (NONE TO FEW) /HPF 10/31/21 10/31/21 Range/Units 07:29 07:29 WBC (4.0-10.2) K/uL RBC (3.77-5.09) M/uL Hgb (11.7-15.5) g/dL Hct (34.0-46.0) % MCV (84.0-98.0) fL MCH (28.2-33.3) pg MCHC (31.7-36.0) g/dL RDW (11.2-14.1) % Plt Count (150-350) K/uL Neut % (Auto) (45.0-80.0) % Lymph % (Auto) (10.0-50.0) % [place] % (Auto) (2.0-14.0) % Eos % (Auto) (0.0-5.0) % Baso % (Auto) (0.0-2.0) % Neut # (Auto) (1.40-7.00) K/uL Lymph # (Auto) (0.50-3.50) K/uL [place] # (Auto) (0.00-1.00) K/uL Eos # (Auto) (0.00-0.50) K/uL Baso # (Auto) (0.00-0.20) K/uL PT (9.6-11.3) SEC INR APTT (23.6-29.8) SEC D-Dimer, Quantitative (0-400) ng/mL VBG pH (7.31-7.41) VBG pCO2 (41-51) mmHG VBG pO2 mmHG VBG HCO3 (23-28) mmol/L VBG Total CO2 mmol/L VBG O2 Saturation % VBG Base Excess ((-2)-3) mmol/L O2 Delivery Device Oxygen Flow Rate L/min Sodium 138 (136-145) mmol/L Potassium 4.3 (3.5-5.1) mmol/L Chloride 100 (98-107) mmol/L Carbon Dioxide 26.3 (21.0-32.0) mmol/L Anion Gap 11.7 (7-15) meq/L BUN 34 H (7-18) mg/dL Creatinine 1.24 H (0.51-1.17) mg/dL Est Cr Clr Drug Dosing 30.05 mL/min Estimated GFR (MDRD) 42 mL/min Glucose 142 H (70-99) mg/dL Lactic Acid (0.4-2.0) mmol/L Calcium 9.4 (8.5-10.1) mg/dL Magnesium (1.8-2.4) mg/dL Total Bilirubin 0.7 (0.2-1.0) mg/dL Direct Bilirubin (0.0-0.2) mg/dL AST 38 H (15-37) U/L ALT 46 (12-78) U/L Alkaline Phosphatase 77 (46-116) IU/L Troponin I High Sens (<=51) ng/L C-Reactive Protein 6.2 H (<=0.9) mg/dL Total Protein 7.1 (6.4-8.2) g/dL Albumin 3.4 (3.4-5.0) g/dL TSH, Ultra Sensitive (0.358-3.740) mIU/mL Specimen Type Urine Color Urine Appearance Urine pH (5.0-9.0) Ur Specific [place] (1.005-1.030) Urine Protein (NEGATIVE) mg/dL Urine Glucose (UA) (NEGATIVE) mg/dL Urine Ketones (NEGATIVE) mg/dL Urine Occult Blood (NEGATIVE) Urine Nitrite (NEGATIVE) Urine Bilirubin (NEGATIVE) Urine Urobilinogen (0.2-1.0) E.U./dL Ur Leukocyte Esterase (NEGATIVE) Urine RBC /HPF Urine WBC /HPF Ur Epithelial Cells /LPF Urine Bacteria (NONE TO FEW) /HPF Med Orders - Current: Current Medications Acetaminophen (Acetaminophen 325 Mg Tab) 650 mg PO Q4H PRN PRN Reason: Pain (Mild 1-3)/fever Albuterol/Ipratropium (Albuterol/Ipratropium 3.0-0.5 Mg/3 Ml Neb Soln) 3 ml INH Q4HRRT [facility] Last Admin: 10/31/21 07:56 Dose: 3 ml Documented by: Arformoterol Tartrate (Arformoterol 15 Mcg/2 Ml Neb Soln) 15 mcg INH BIDRT [facility] Last Admin: 10/31/21 07:56 Dose: 15 mcg Documented by: Benzonatate (Benzonatate 100 Mg Cap) 200 mg PO BID PRN PRN Reason: Cough Last Admin: 10/30/21 19:41 Dose: 200 mg Documented by: Dexamethasone (Dexamethasone 2 Mg Tab) 6 mg PO DAILY [facility] Last Admin: 10/31/21 07:56 Dose: 6 mg Documented by: Enoxaparin Sodium (Enoxaparin 40 Mg/0.4 Ml Syringe) 40 mg SUBCUT DAILY [facility] Last Admin: 10/31/21 07:56 Dose: 40 mg Documented by: Furosemide (Furosemide 40 Mg Tab) 40 mg PO DAILY [facility] Last Admin: 10/31/21 07:57 Dose: 40 mg Documented by: Remdesivir 100 mg/ Sodium (Chloride) 100 mls @ 100 mls/hr IV Q24H [facility] Stop: 11/02/21 15:59 Indomethacin (Indomethacin 25 Mg Cap) 50 mg PO TID PRN PRN Reason: gout Last Admin: 10/30/21 19:41 Dose: 50 mg Documented by: Lisinopril (Lisinopril 5 Mg Tab) 2.5 mg PO DAILY [facility] Last Admin: 10/31/21 07:57 Dose: 2.5 mg Documented by: Loperamide HCl (Loperamide 2 Mg Tab) 4 mg PO Q6H PRN PRN Reason: Diarrhea Metoprolol Succinate (Metoprolol Succinate 25 Mg Tab.Er) 12.5 mg PO BEDTIME [facility] Last Admin: 10/30/21 19:42 Dose: 12.5 mg Documented by: Omeprazole (Omeprazole 20 Mg Cap.Cr) 40 mg PO ACBREAKFAST [facility] Last Admin: 10/31/21 07:57 Dose: 40 mg Documented by: Ondansetron HCl (Ondansetron 4 Mg Tab.Dis) 4 mg PO Q4H PRN PRN Reason: Nausea/Vomiting Last Admin: 10/30/21 21:23 Dose: 4 mg Documented by: Potassium Chloride (Potassium Chloride 10 Meq Tab.Er) 20 meq PO BID [facility] Last Admin: 10/31/21 07:56 Dose: 20 meq Documented by: Discontinued Medications Remdesivir 200 mg/ Sodium (Chloride) 250 mls @ 250 mls/hr IV ONETIME ONE Stop: 10/30/21 20:59 Last Admin: 10/30/21 21:24 Dose: 250 mls/hr Documented by: Iopamidol (Iopamidol 755 Mg/Ml 100 Ml Bottle) 100 ml IVPUSH ONETIME STA Stop: 10/30/21 20:03 Last Admin: 10/30/21 21:00 Dose: 100 ml Documented by: Potassium Chloride (Potassium Chloride 20 Meq Tab.Er) 40 meq PO ONETIME ONE Stop: 10/30/21 19:39 Last Admin: 10/30/21 23:28 Dose: Not Given Documented by: Potassium Chloride (Potassium Chloride 20 Meq Tab.Er) Confirm Administered Dose 40 meq .ROUTE .STK-MED ONE Stop: 10/30/21 23:13 Last Admin: 10/30/21 23:28 Dose: 40 meq Documented by: - Exam General: Alert, Oriented, No Acute Distress (Elderly female, looks overall good.) HEENT: Mucous Membr. Moist/[place] Neck: Supple Lungs: Normal Respiratory Effort, Decreased Breath Sounds (Slightly diminshed in the bases with scattered crackles.) Cardiovascular: Regular Rate, Regular Rhythm GI/Abdominal Exam: Normal Bowel Sounds, Soft, Non-Tender (Female) Exam: Deferred Extremities: Normal Inspection, Normal Range of Motion, No Pedal Edema, Normal Capillary Refill Skin: Warm, Dry, Intact Neurological: No New Focal Deficit Psy/Mental Status: Alert, Normal Affect, Normal Mood - Patient Data Lab Results Last 24 hrs: Laboratory Results - last 24 hr 10/30/21 10/30/21 10/30/21 Range/Units 18:01 18:01 18:01 WBC (4.0-10.2) K/uL RBC (3.77-5.09) M/uL Hgb (11.7-15.5) g/dL Hct (34.0-46.0) % MCV (84.0-98.0) fL MCH (28.2-33.3) pg MCHC (31.7-36.0) g/dL RDW (11.2-14.1) % Plt Count (150-350) K/uL Neut % (Auto) (45.0-80.0) % Lymph % (Auto) (10.0-50.0) % [place] % (Auto) (2.0-14.0) % Eos % (Auto) (0.0-5.0) % Baso % (Auto) (0.0-2.0) % Neut # (Auto) (1.40-7.00) K/uL Lymph # (Auto) (0.50-3.50) K/uL [place] # (Auto) (0.00-1.00) K/uL Eos # (Auto) (0.00-0.50) K/uL Baso # (Auto) (0.00-0.20) K/uL PT 10.2 (9.6-11.3) SEC INR 1.0 APTT 29.4 (23.6-29.8) SEC D-Dimer, Quantitative 544 H (0-400) ng/mL VBG pH (7.31-7.41) VBG pCO2 (41-51) mmHG VBG pO2 mmHG VBG HCO3 (23-28) mmol/L VBG Total CO2 mmol/L VBG O2 Saturation % VBG Base Excess ((-2)-3) mmol/L O2 Delivery Device Oxygen Flow Rate L/min Sodium 136 (136-145) mmol/L Potassium 3.3 L (3.5-5.1) mmol/L Chloride 98 (98-107) mmol/L Carbon Dioxide 27.4 (21.0-32.0) mmol/L Anion Gap 13.9 (7-15) meq/L BUN 33 H (7-18) mg/dL Creatinine 1.28 H (0.51-1.17) mg/dL Est Cr Clr Drug Dosing 29.11 mL/min Estimated GFR (MDRD) 40 mL/min Glucose 92 (70-99) mg/dL Lactic Acid (0.4-2.0) mmol/L Calcium 9.0 (8.5-10.1) mg/dL Magnesium 1.8 (1.8-2.4) mg/dL Total Bilirubin 0.9 (0.2-1.0) mg/dL Direct Bilirubin (0.0-0.2) mg/dL AST 43 H (15-37) U/L ALT 45 (12-78) U/L Alkaline Phosphatase 69 (46-116) IU/L Troponin I High Sens 14 (<=51) ng/L C-Reactive Protein 5.2 H (<=0.9) mg/dL Total Protein 6.2 L (6.4-8.2) g/dL Albumin 3.0 L (3.4-5.0) g/dL TSH, Ultra Sensitive 2.188 (0.358-3.740) mIU/mL Specimen Type Urine Color Urine Appearance Urine pH (5.0-9.0) Ur Specific [place] (1.005-1.030) Urine Protein (NEGATIVE) mg/dL Urine Glucose (UA) (NEGATIVE) mg/dL Urine Ketones (NEGATIVE) mg/dL Urine Occult Blood (NEGATIVE) Urine Nitrite (NEGATIVE) Urine Bilirubin (NEGATIVE) Urine Urobilinogen (0.2-1.0) E.U./dL Ur Leukocyte Esterase (NEGATIVE) Urine RBC /HPF Urine WBC /HPF Ur Epithelial Cells /LPF Urine Bacteria (NONE TO FEW) /HPF 10/30/21 10/30/21 10/30/21 Range/Units 18:01 18:01 19:00 WBC (4.0-10.2) K/uL RBC (3.77-5.09) M/uL Hgb (11.7-15.5) g/dL Hct (34.0-46.0) % MCV (84.0-98.0) fL MCH (28.2-33.3) pg MCHC (31.7-36.0) g/dL RDW (11.2-14.1) % Plt Count (150-350) K/uL Neut % (Auto) (45.0-80.0) % Lymph % (Auto) (10.0-50.0) % [place] % (Auto) (2.0-14.0) % Eos % (Auto) (0.0-5.0) % Baso % (Auto) (0.0-2.0) % Neut # (Auto) (1.40-7.00) K/uL Lymph # (Auto) (0.50-3.50) K/uL [place] # (Auto) (0.00-1.00) K/uL Eos # (Auto) (0.00-0.50) K/uL Baso # (Auto) (0.00-0.20) K/uL PT (9.6-11.3) SEC INR APTT (23.6-29.8) SEC D-Dimer, Quantitative (0-400) ng/mL VBG pH 7.42 H (7.31-7.41) VBG pCO2 42 (41-51) mmHG VBG pO2 41 mmHG VBG HCO3 27 (23-28) mmol/L VBG Total CO2 28 mmol/L VBG O2 Saturation 77 % VBG Base Excess 3 ((-2)-3) mmol/L O2 Delivery Device Nasal cannula Oxygen Flow Rate 4 L/min Sodium (136-145) mmol/L Potassium (3.5-5.1) mmol/L Chloride (98-107) mmol/L Carbon Dioxide (21.0-32.0) mmol/L Anion Gap (7-15) meq/L BUN (7-18) mg/dL Creatinine (0.51-1.17) mg/dL Est Cr Clr Drug Dosing mL/min Estimated GFR (MDRD) mL/min Glucose (70-99) mg/dL Lactic Acid 1.1 (0.4-2.0) mmol/L Calcium (8.5-10.1) mg/dL Magnesium (1.8-2.4) mg/dL Total Bilirubin (0.2-1.0) mg/dL Direct Bilirubin 0.3 H (0.0-0.2) mg/dL AST (15-37) U/L ALT (12-78) U/L Alkaline Phosphatase (46-116) IU/L Troponin I High Sens (<=51) ng/L C-Reactive Protein (<=0.9) mg/dL Total Protein (6.4-8.2) g/dL Albumin (3.4-5.0) g/dL TSH, Ultra Sensitive (0.358-3.740) mIU/mL Specimen Type Urine Color Urine Appearance Urine pH (5.0-9.0) Ur Specific [place] (1.005-1.030) Urine Protein (NEGATIVE) mg/dL Urine Glucose (UA) (NEGATIVE) mg/dL Urine Ketones (NEGATIVE) mg/dL Urine Occult Blood (NEGATIVE) Urine Nitrite (NEGATIVE) Urine Bilirubin (NEGATIVE) Urine Urobilinogen (0.2-1.0) E.U./dL Ur Leukocyte Esterase (NEGATIVE) Urine RBC /HPF Urine WBC /HPF Ur Epithelial Cells /LPF Urine Bacteria (NONE TO FEW) /HPF 10/30/21 10/31/21 10/31/21 Range/Units 21:15 07:29 07:29 WBC 4.2 (4.0-10.2) K/uL RBC 4.53 (3.77-5.09) M/uL Hgb 13.6 (11.7-15.5) g/dL Hct 39.4 (34.0-46.0) % MCV 87.0 D (84.0-98.0) fL MCH 30.0 (28.2-33.3) pg MCHC 34.5 (31.7-36.0) g/dL RDW 15.7 H (11.2-14.1) % Plt Count 211 (150-350) K/uL Neut % (Auto) 76.2 (45.0-80.0) % Lymph % (Auto) 17.9 (10.0-50.0) % [place] % (Auto) 5.7 (2.0-14.0) % Eos % (Auto) 0.0 (0.0-5.0) % Baso % (Auto) 0.2 (0.0-2.0) % Neut # (Auto) 3.19 (1.40-7.00) K/uL Lymph # (Auto) 0.75 (0.50-3.50) K/uL [place] # (Auto) 0.24 (0.00-1.00) K/uL Eos # (Auto) 0.00 (0.00-0.50) K/uL Baso # (Auto) 0.01 (0.00-0.20) K/uL PT (9.6-11.3) SEC INR APTT (23.6-29.8) SEC D-Dimer, Quantitative (0-400) ng/mL VBG pH (7.31-7.41) VBG pCO2 (41-51) mmHG VBG pO2 mmHG VBG HCO3 (23-28) mmol/L VBG Total CO2 mmol/L VBG O2 Saturation % VBG Base Excess ((-2)-3) mmol/L O2 Delivery Device Oxygen Flow Rate L/min Sodium (136-145) mmol/L Potassium (3.5-5.1) mmol/L Chloride (98-107) mmol/L Carbon Dioxide (21.0-32.0) mmol/L Anion Gap (7-15) meq/L BUN (7-18) mg/dL Creatinine (0.51-1.17) mg/dL Est Cr Clr Drug Dosing mL/min Estimated GFR (MDRD) mL/min Glucose (70-99) mg/dL Lactic Acid (0.4-2.0) mmol/L Calcium (8.5-10.1) mg/dL Magnesium (1.8-2.4) mg/dL Total Bilirubin (0.2-1.0) mg/dL Direct Bilirubin 0.3 H (0.0-0.2) mg/dL AST (15-37) U/L ALT (12-78) U/L Alkaline Phosphatase (46-116) IU/L Troponin I High Sens (<=51) ng/L C-Reactive Protein (<=0.9) mg/dL Total Protein (6.4-8.2) g/dL Albumin (3.4-5.0) g/dL TSH, Ultra Sensitive (0.358-3.740) mIU/mL Specimen Type Urincc Urine Color Yellow Urine Appearance Slightly cloudy Urine pH 5.5 (5.0-9.0) Ur Specific [place] <= 1.005 (1.005-1.030) Urine Protein Negative (NEGATIVE) mg/dL Urine Glucose (UA) Negative (NEGATIVE) mg/dL Urine Ketones Negative (NEGATIVE) mg/dL Urine Occult Blood Negative (NEGATIVE) Urine Nitrite Negative (NEGATIVE) Urine Bilirubin Negative (NEGATIVE) Urine Urobilinogen 0.2 (0.2-1.0) E.U./dL Ur Leukocyte Esterase Trace H (NEGATIVE) Urine RBC 0-5 /HPF Urine WBC 0-5 /HPF Ur Epithelial Cells Rare /LPF Urine Bacteria Moderate H (NONE TO FEW) /HPF 10/31/21 10/31/21 Range/Units 07:29 07:29 WBC (4.0-10.2) K/uL RBC (3.77-5.09) M/uL Hgb (11.7-15.5) g/dL Hct (34.0-46.0) % MCV (84.0-98.0) fL MCH (28.2-33.3) pg MCHC (31.7-36.0) g/dL RDW (11.2-14.1) % Plt Count (150-350) K/uL Neut % (Auto) (45.0-80.0) % Lymph % (Auto) (10.0-50.0) % [place] % (Auto) (2.0-14.0) % Eos % (Auto) (0.0-5.0) % Baso % (Auto) (0.0-2.0) % Neut # (Auto) (1.40-7.00) K/uL Lymph # (Auto) (0.50-3.50) K/uL [place] # (Auto) (0.00-1.00) K/uL Eos # (Auto) (0.00-0.50) K/uL Baso # (Auto) (0.00-0.20) K/uL PT (9.6-11.3) SEC INR APTT (23.6-29.8) SEC D-Dimer, Quantitative (0-400) ng/mL VBG pH (7.31-7.41) VBG pCO2 (41-51) mmHG VBG pO2 mmHG VBG HCO3 (23-28) mmol/L VBG Total CO2 mmol/L VBG O2 Saturation % VBG Base Excess ((-2)-3) mmol/L O2 Delivery Device Oxygen Flow Rate L/min Sodium 138 (136-145) mmol/L Potassium 4.3 (3.5-5.1) mmol/L Chloride 100 (98-107) mmol/L Carbon Dioxide 26.3 (21.0-32.0) mmol/L Anion Gap 11.7 (7-15) meq/L BUN 34 H (7-18) mg/dL Creatinine 1.24 H (0.51-1.17) mg/dL Est Cr Clr Drug Dosing 30.05 mL/min Estimated GFR (MDRD) 42 mL/min Glucose 142 H (70-99) mg/dL Lactic Acid (0.4-2.0) mmol/L Calcium 9.4 (8.5-10.1) mg/dL Magnesium (1.8-2.4) mg/dL Total Bilirubin 0.7 (0.2-1.0) mg/dL Direct Bilirubin (0.0-0.2) mg/dL AST 38 H (15-37) U/L ALT 46 (12-78) U/L Alkaline Phosphatase 77 (46-116) IU/L Troponin I High Sens (<=51) ng/L C-Reactive Protein 6.2 H (<=0.9) mg/dL Total Protein 7.1 (6.4-8.2) g/dL Albumin 3.4 (3.4-5.0) g/dL TSH, Ultra Sensitive (0.358-3.740) mIU/mL Specimen Type Urine Color Urine Appearance Urine pH (5.0-9.0) Ur Specific [place] (1.005-1.030) Urine Protein (NEGATIVE) mg/dL Urine Glucose (UA) (NEGATIVE) mg/dL Urine Ketones (NEGATIVE) mg/dL Urine Occult Blood (NEGATIVE) Urine Nitrite (NEGATIVE) Urine Bilirubin (NEGATIVE) Urine Urobilinogen (0.2-1.0) E.U./dL Ur Leukocyte Esterase (NEGATIVE) Urine RBC /HPF Urine WBC /HPF Ur Epithelial Cells /LPF Urine Bacteria (NONE TO FEW) /HPF Result Diagrams: 10/31/21 07:29 10/31/21 07:29 Imaging Impressions Last 24 hrs: CTA Chest=no PE noted, radiologist called [employer]CHNICIAN with report (See final report) Sepsis Event Note - Evaluation Sepsis Screening Result: No Definite Risk - Focused Exam Vital Signs: Vital Signs Temp Pulse Resp BP BP Pulse Ox 10/31/21 07:59 84 20 100/79 95 10/31/21 07:57 100/79 10/31/21 04:00 36.6 C 71 18 134/68 95 10/30/21 23:27 36.3 C 80 16 124/79 95 - Problem List & Annotations (1) COVID-19 SNOMED Code(s): 343290658 Code(s): U07.1 - COVID-19 Status: Acute Current Visit: Yes Annotation/Comment:: +COVID test 10/30/21 Day #8 of sx for her. Has had 1st dose of Remdesivir. Also started Lovenox and Decadron. Doign well with nebs. Blood Cx ordered. AST=38, most likely elevated due to COVID but trending down. CRP=6.2. (2) COPD (chronic obstructive pulmonary disease) SNOMED Code(s): 02469565 Code(s): J44.9 - CHRONIC OBSTRUCTIVE PULMONARY DISEASE, UNSPECIFIED Status: Chronic Priority: High Current Visit: No Qualifiers: COPD type: unspecified COPD Qualified Code(s): J44.9 - Chronic obstructive pulmonary disease, unspecified Annotation/Comment:: Has home oxygen for prn use, using 2 liters at this time in the hospital and sats good. (3) Hypertension SNOMED Code(s): 79399430 Code(s): I10 - ESSENTIAL (PRIMARY) HYPERTENSION Status: Chronic Priority: Medium Current Visit: No Annotation/Comment:: Continue Metoprolol and Lisinopril. Will monitor BPs. (4) Diarrhea due to COVID-19 SNOMED Code(s): 853313339 Code(s): U07.1 - COVID-19; A08.39 - OTHER VIRAL ENTERITIS Status: Acute Current Visit: Yes Annotation/Comment:: Will monitor. Immodium ordered. (5) Hypokalemia SNOMED Code(s): 78586131 Code(s): E87.6 - HYPOKALEMIA Status: Acute Current Visit: Yes Annotation/Comment:: Potassium normalized this AM. Diarrhea improved today and suspect that has had some effect on the potassium. She is on replacement. (6) Elevated d-dimer SNOMED Code(s): 837381029 Code(s): R79.89 - OTHER SPECIFIED ABNORMAL FINDINGS OF BLOOD CHEMISTRY Status: Acute Current Visit: Yes Annotation/Comment:: Hx of elevated D Dimer. CTA negative during this hospitalization. - Problem List Review Problem List Initiated/Reviewed/Updated: Yes - My Orders Last 24 Hours: My Active Orders 10/30/21 15:00 Remdesivir 100 mg Sodium Chloride 0.9% [Normal Saline AdvBag] 100 ml IV Q24H 10/30/21 17:33 EKG Documentation Completion [RC] STAT Chest 1V Frontal [CR] Routine Blood Culture x2 Reflex Set [OM.PC] Stat Isolation [COMM] Routine Saline Lock Insert [OM.PC] Stat 10/30/21 18:06 Benzonatate [Tessalon Perles] 200 mg PO BID PRN 10/30/21 18:08 RT Aerosol Therapy [RC] Q4HR 10/30/21 18:09 Patient Status [ADT] Routine Ambulate [RC] ASDIRECTED Height and Weight [RC] UPON Oxygen Therapy [RC] 2300 Up ad Ibis [RC] ASDIRECTED VTE/DVT Education [RC] PER UNIT ROUTINE Vital Signs [RC] Q4HR Acetaminophen [TylenoL] 650 mg PO Q4H PRN Ondansetron [Zofran ODT] 4 mg PO Q4H PRN Peripheral IV Insertion Adult [OM.PC] Routine 10/30/21 18:11 Intake and Output [RC] ,18 Pulse Oximetry [RC] CONTINUOUS 10/30/21 18:12 Ambulate [RC] PER UNIT ROUTINE Peripheral IV Care [RC] ,20 10/30/21 18:15 Enoxaparin [Lovenox] 40 mg SUBCUT DAILY 10/30/21 18:30 CULTURE BLOOD [BC] Stat dexAMETHasone 6 mg PO DAILY 10/30/21 18:31 Loperamide [Imodium AD] 4 mg PO Q6H PRN 10/30/21 18:44 Incentive Spirometry [RT Incentive Spirometry] [RC] Q1HWA Positioning, Patient [RC] ASDIRECTED 10/30/21 18:45 Oxygen Therapy [RC] ASDIRECTED 10/30/21 19:00 CULTURE BLOOD [BC] Stat 10/30/21 19:08 Indomethacin [Indocin] 50 mg PO TID PRN 10/30/21 19:36 CTA Chest W WO Contrast [Ang Chest] [CT] Routine 10/30/21 20:00 Albuterol/Ipratropium [DuoNeb 3.0-0.5 MG/3 ML] 3 ml INH Q4HRRT Metoprolol Succinate [Toprol XL] 12.5 mg PO BEDTIME Pulse Oximetry Continuous Monitoring [OM.PC] Routine 10/30/21 22:24 Resuscitation Status Routine 10/31/21 05:36 Overnight Pulse Oximetry [RC] Click to Edit 10/31/21 07:30 Omeprazole 40 mg PO ACBREAKFAST 10/31/21 08:00 Arformoterol [Brovana] 15 mcg INH BIDRT Furosemide [Lasix] 40 mg PO DAILY Potassium Chloride [Klor-Con 10] 20 meq PO BID lisinopriL [Prinivil] 2.5 mg PO DAILY 11/01/21 18:15 BILIRUBIN DIRECT [CHEM] DAILY 11/02/21 18:15 BILIRUBIN DIRECT [CHEM] DAILY 11/03/21 18:15 BILIRUBIN DIRECT [CHEM] DAILY - Plan Plan:: -INSTRUCTIONAL MEDIA SERVICES TECHNICIAN discussed with patient that Remdesivir is a 5 day course of therapy. She has currently only had 1 dose. I had a discussion with the patient about her workup and results. I informed the patient that the next step in diagnosis and treatment would be to finish the 5 day course of antiviral therapy, and they verbalized understanding of this as well. I explained the risks of leaving without further workup or treatment, which included reasonably foreseeable complications such as , serious injury, permanent disability, and unknown l sophia term effects from an incomplete course of therapy. Patient would still like to go home today after receiving the second dose of Remdesivir. The patient is clinically sober, free from distracting injury, appears to have intact insight and judgment and reason, and in my opinion has the capacity to make decisions. I explained things to the patient verbalized understanding of my concerns. -Will plan to send her home today after Dose #2 of Remdesivir on steroids and ASA. She has nebs at home and also home oxygen. She will be encouraged to use the incentive spirometer and wear her oxygen.
[2021-10-31] MEDS ORDERED: Sodium Chloride 0.9% 10 ML Syringe FLUSH PRN (10:07)
--- NOTE | 2021-10-31 10:23 | PCM.DCSUM1 ---
Discharge Summary - Hospital Course HPI Initial Comments: Estee is a 76 y/o female who had contacted the [facility] on 10-30-21 and Janie Lr PA-C had ordered outpatient COVID testing. Her test came back positive and she was sent to the hospital by her PCP for MAB infusion. On arrival to the hospital, she was weak and very SOB, nursing reported that her sat was 79% on RA. Patient reports being sick for a week with mild cough and diarrhea. The diarrhea has actually been more of an issue and she has been having multiple stools every day for the last 7 days. No fever. She does have home oxygen that uses prn and only at 2 liters. She has not been using that at home. Her also tested positive today for COVID. She was subsequently admitted. Brief History: CTA was negative while admitted. She was started on Lovenox and nebs. Along with oxygen, proning, and incentive spirometry. By the first hospital day she felt much better. Diarrhea had improved and she felt that she could go home to manage her sx. Diagnosis: Stroke: No - Discharge Data Discharge Date: 10/31/21 Discharge Disposition: Home, Self-Care 01 Condition: Good - Referral to Home Health Primary Care Physician: PCP Unknown - Discharge Diagnosis/Problem(s) (1) COVID-19 SNOMED Code(s): 570699641 ICD Code: U07.1 - COVID-19 Status: Acute Current Visit: Yes Problem Details: +COVID test 10/30/21 Day #8 of sx for her. Has had 1st dose of Remdesivir. Also started Lovenox and Decadron. Doing well with nebs. Blood Cx ordered. AST=38, most likely elevated due to COVID but trending down. CRP=6.2. Discharge to home today with ASA and Steroids for another 5 days. (2) COPD (chronic obstructive pulmonary disease) SNOMED Code(s): 74245850 ICD Code: J44.9 - CHRONIC OBSTRUCTIVE PULMONARY DISEASE, UNSPECIFIED Status: Chronic Priority: High Current Visit: No Problem Details: Has home oxygen for prn use, using 2 liters at this time in the hospital and sats good. Qualifiers: COPD type: unspecified COPD Qualified Code(s): J44.9 - Chronic obstructive pulmonary disease, unspecified (3) Hypertension SNOMED Code(s): 08544865 ICD Code: I10 - ESSENTIAL (PRIMARY) HYPERTENSION Status: Chronic Priority: Medium Current Visit: No Problem Details: Continue Metoprolol and Lisinopril. Will monitor BPs. (4) Diarrhea due to COVID-19 SNOMED Code(s): 000876932 ICD Code: U07.1 - COVID-19; A08.39 - OTHER VIRAL ENTERITIS Status: Acute Current Visit: Yes Problem Details: Will monitor. Immodium ordered. (5) Hypokalemia SNOMED Code(s): 76761939 ICD Code: E87.6 - HYPOKALEMIA Status: Acute Current Visit: Yes Problem Details: Potassium normalized this AM. Diarrhea improved today and suspect that has had some effect on the potassium. She is on replacement. (6) Elevated d-dimer SNOMED Code(s): 391501678 ICD Code: R79.89 - OTHER SPECIFIED ABNORMAL FINDINGS OF BLOOD CHEMISTRY Status: Acute Current Visit: Yes Problem Details: Hx of elevated D Dimer. CTA negative during this hospitalization. - Patient Summary/Data Hospital Course: Patient was admitted and Remdesivir started. She received 2 doses and felt much better and was ready to go home. 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 She was started on Lovenox and D Dimer noted to be elevated. CTA was negative for PE. Her labs were fairly stable and she felt better with oxygen, steroids, and nebs. Her COPD history was a complicating factor in her course. - Patient Instructions Diet: Usual Diet as Tolerated Activity: As Tolerated Showering/Bathing: May Shower Other/Special Instructions: -Make an appointment to see your PCP in 1 week for a hospital follow up - Discharge Plan Prescriptions/Med Rec: Aspirin 81 mg PO DAILY #45 tab.chew dexAMETHasone [Dexamethasone] 6 mg PO DAILY 5 Days #15 tablet Ondansetron [Zofran ODT] 4 mg PO Q4H PRN #12 tab.dis PRN Reason: Nausea/Vomiting Home Medications: Home Meds Furosemide 40 mg PO DAILY 04/21/16 [History] Lisinopril 2.5 mg PO DAILY 04/21/16 [History] Metoprolol Succinate [Toprol XL] 12.5 mg PO BEDTIME 04/21/16 [History] Arformoterol [Brovana] 15 mcg INH BID 02/23/18 [History] Omeprazole 40 mg PO DAILY 08/10/19 [History] Benzonatate [Tessalon Perle] 200 mg PO BID PRN 01/25/20 [History] Indomethacin [Indocin] 50 mg PO TID PRN 01/25/20 [History] Potassium Chloride [Klor-Con 10] 20 meq PO BID 01/25/20 [History] Promethazine HCl/Codeine [Prometh-Codein 6.25-10 mg/5 ml] 5 ml PO Q4H PRN 01/25/20 [History] Albuterol/Ipratropium [DuoNeb 3.0-0.5 MG/3 ML] 3 ml INH Q4HRRT neb 10/31/21 [Rx] Aspirin 81 mg PO DAILY #45 tab.chew 10/31/21 [Rx] Loperamide [Imodium AD] 4 mg PO Q6H PRN tablet 10/31/21 [Rx] Ondansetron [Zofran ODT] 4 mg PO Q4H PRN #12 tab.dis 10/31/21 [Rx] dexAMETHasone [Dexamethasone] 6 mg PO DAILY 5 Days #15 tablet 10/31/21 [Rx] Oxygen Therapy Mode: Nasal Cannula Oxygen Flow Rate (L/min): 2 Maintain SpO2% greater than: 90 Patient Handouts: COVID-19, Chronic Obstructive Pulmonary Disease Referrals: Janie Lr PA [ED Midlevel Provider] - - Discharge Summary/Plan Comment DC Time >30 min.: Yes Total # of Minutes for Discharge Time: 45 Discharge Summary/Plan Comment: As above Discharge this afternoon following Dose #2 of Remdesivir. - Patient Data Vitals - Most Recent: Last Vital Signs Temp 36.3 C 10/31/21 07:59 Pulse 84 10/31/21 07:59 Resp 20 10/31/21 07:59 BP 100/79 10/31/21 07:59 Pulse Ox 95 10/31/21 07:59 Weight - Most Recent: 99.79 kg I&O - Last 24 hours: Intake & Output 10/30/21 10/31/21 10/31/21 22:59 06:59 14:59 Intake Total 590 Balance 590 Lab Results - Last 24 hrs: Laboratory Results - last 24 hr 10/30/21 10/30/21 10/30/21 Range/Units 18:01 18:01 18:01 WBC (4.0-10.2) K/uL RBC (3.77-5.09) M/uL Hgb (11.7-15.5) g/dL Hct (34.0-46.0) % MCV (84.0-98.0) fL MCH (28.2-33.3) pg MCHC (31.7-36.0) g/dL RDW (11.2-14.1) % Plt Count (150-350) K/uL Neut % (Auto) (45.0-80.0) % Lymph % (Auto) (10.0-50.0) % Haskell % (Auto) (2.0-14.0) % Eos % (Auto) (0.0-5.0) % Baso % (Auto) (0.0-2.0) % Neut # (Auto) (1.40-7.00) K/uL Lymph # (Auto) (0.50-3.50) K/uL Haskell # (Auto) (0.00-1.00) K/uL Eos # (Auto) (0.00-0.50) K/uL Baso # (Auto) (0.00-0.20) K/uL PT 10.2 (9.6-11.3) SEC INR 1.0 APTT 29.4 (23.6-29.8) SEC D-Dimer, Quantitative 544 H (0-400) ng/mL VBG pH (7.31-7.41) VBG pCO2 (41-51) mmHG VBG pO2 mmHG VBG HCO3 (23-28) mmol/L VBG Total CO2 mmol/L VBG O2 Saturation % VBG Base Excess ((-2)-3) mmol/L O2 Delivery Device Oxygen Flow Rate L/min Sodium 136 (136-145) mmol/L Potassium 3.3 L (3.5-5.1) mmol/L Chloride 98 (98-107) mmol/L Carbon Dioxide 27.4 (21.0-32.0) mmol/L Anion Gap 13.9 (7-15) meq/L BUN 33 H (7-18) mg/dL Creatinine 1.28 H (0.51-1.17) mg/dL Est Cr Clr Drug Dosing 29.11 mL/min Estimated GFR (MDRD) 40 mL/min Glucose 92 (70-99) mg/dL Lactic Acid (0.4-2.0) mmol/L Calcium 9.0 (8.5-10.1) mg/dL Magnesium 1.8 (1.8-2.4) mg/dL Total Bilirubin 0.9 (0.2-1.0) mg/dL Direct Bilirubin (0.0-0.2) mg/dL AST 43 H (15-37) U/L ALT 45 (12-78) U/L Alkaline Phosphatase 69 (46-116) IU/L Troponin I High Sens 14 (<=51) ng/L C-Reactive Protein 5.2 H (<=0.9) mg/dL Total Protein 6.2 L (6.4-8.2) g/dL Albumin 3.0 L (3.4-5.0) g/dL TSH, Ultra Sensitive 2.188 (0.358-3.740) mIU/mL Specimen Type Urine Color Urine Appearance Urine pH (5.0-9.0) Ur Specific [place] (1.005-1.030) Urine Protein (NEGATIVE) mg/dL Urine Glucose (UA) (NEGATIVE) mg/dL Urine Ketones (NEGATIVE) mg/dL Urine Occult Blood (NEGATIVE) Urine Nitrite (NEGATIVE) Urine Bilirubin (NEGATIVE) Urine Urobilinogen (0.2-1.0) E.U./dL Ur Leukocyte Esterase (NEGATIVE) Urine RBC /HPF Urine WBC /HPF Ur Epithelial Cells /LPF Urine Bacteria (NONE TO FEW) /HPF 10/30/21 10/30/21 10/30/21 Range/Units 18:01 18:01 19:00 WBC (4.0-10.2) K/uL RBC (3.77-5.09) M/uL Hgb (11.7-15.5) g/dL Hct (34.0-46.0) % MCV (84.0-98.0) fL MCH (28.2-33.3) pg MCHC (31.7-36.0) g/dL RDW (11.2-14.1) % Plt Count (150-350) K/uL Neut % (Auto) (45.0-80.0) % Lymph % (Auto) (10.0-50.0) % Haskell % (Auto) (2.0-14.0) % Eos % (Auto) (0.0-5.0) % Baso % (Auto) (0.0-2.0) % Neut # (Auto) (1.40-7.00) K/uL Lymph # (Auto) (0.50-3.50) K/uL Haskell # (Auto) (0.00-1.00) K/uL Eos # (Auto) (0.00-0.50) K/uL Baso # (Auto) (0.00-0.20) K/uL PT (9.6-11.3) SEC INR APTT (23.6-29.8) SEC D-Dimer, Quantitative (0-400) ng/mL VBG pH 7.42 H (7.31-7.41) VBG pCO2 42 (41-51) mmHG VBG pO2 41 mmHG VBG HCO3 27 (23-28) mmol/L VBG Total CO2 28 mmol/L VBG O2 Saturation 77 % VBG Base Excess 3 ((-2)-3) mmol/L O2 Delivery Device Nasal cannula Oxygen Flow Rate 4 L/min Sodium (136-145) mmol/L Potassium (3.5-5.1) mmol/L Chloride (98-107) mmol/L Carbon Dioxide (21.0-32.0) mmol/L Anion Gap (7-15) meq/L BUN (7-18) mg/dL Creatinine (0.51-1.17) mg/dL Est Cr Clr Drug Dosing mL/min Estimated GFR (MDRD) mL/min Glucose (70-99) mg/dL Lactic Acid 1.1 (0.4-2.0) mmol/L Calcium (8.5-10.1) mg/dL Magnesium (1.8-2.4) mg/dL Total Bilirubin (0.2-1.0) mg/dL Direct Bilirubin 0.3 H (0.0-0.2) mg/dL AST (15-37) U/L ALT (12-78) U/L Alkaline Phosphatase (46-116) IU/L Troponin I High Sens (<=51) ng/L C-Reactive Protein (<=0.9) mg/dL Total Protein (6.4-8.2) g/dL Albumin (3.4-5.0) g/dL TSH, Ultra Sensitive (0.358-3.740) mIU/mL Specimen Type Urine Color Urine Appearance Urine pH (5.0-9.0) Ur Specific [place] (1.005-1.030) Urine Protein (NEGATIVE) mg/dL Urine Glucose (UA) (NEGATIVE) mg/dL Urine Ketones (NEGATIVE) mg/dL Urine Occult Blood (NEGATIVE) Urine Nitrite (NEGATIVE) Urine Bilirubin (NEGATIVE) Urine Urobilinogen (0.2-1.0) E.U./dL Ur Leukocyte Esterase (NEGATIVE) Urine RBC /HPF Urine WBC /HPF Ur Epithelial Cells /LPF Urine Bacteria (NONE TO FEW) /HPF 10/30/21 10/31/21 10/31/21 Range/Units 21:15 07:29 07:29 WBC 4.2 (4.0-10.2) K/uL RBC 4.53 (3.77-5.09) M/uL Hgb 13.6 (11.7-15.5) g/dL Hct 39.4 (34.0-46.0) % MCV 87.0 D (84.0-98.0) fL MCH 30.0 (28.2-33.3) pg MCHC 34.5 (31.7-36.0) g/dL RDW 15.7 H (11.2-14.1) % Plt Count 211 (150-350) K/uL Neut % (Auto) 76.2 (45.0-80.0) % Lymph % (Auto) 17.9 (10.0-50.0) % Haskell % (Auto) 5.7 (2.0-14.0) % Eos % (Auto) 0.0 (0.0-5.0) % Baso % (Auto) 0.2 (0.0-2.0) % Neut # (Auto) 3.19 (1.40-7.00) K/uL Lymph # (Auto) 0.75 (0.50-3.50) K/uL Haskell # (Auto) 0.24 (0.00-1.00) K/uL Eos # (Auto) 0.00 (0.00-0.50) K/uL Baso # (Auto) 0.01 (0.00-0.20) K/uL PT (9.6-11.3) SEC INR APTT (23.6-29.8) SEC D-Dimer, Quantitative (0-400) ng/mL VBG pH (7.31-7.41) VBG pCO2 (41-51) mmHG VBG pO2 mmHG VBG HCO3 (23-28) mmol/L VBG Total CO2 mmol/L VBG O2 Saturation % VBG Base Excess ((-2)-3) mmol/L O2 Delivery Device Oxygen Flow Rate L/min Sodium (136-145) mmol/L Potassium (3.5-5.1) mmol/L Chloride (98-107) mmol/L Carbon Dioxide (21.0-32.0) mmol/L Anion Gap (7-15) meq/L BUN (7-18) mg/dL Creatinine (0.51-1.17) mg/dL Est Cr Clr Drug Dosing mL/min Estimated GFR (MDRD) mL/min Glucose (70-99) mg/dL Lactic Acid (0.4-2.0) mmol/L Calcium (8.5-10.1) mg/dL Magnesium (1.8-2.4) mg/dL Total Bilirubin (0.2-1.0) mg/dL Direct Bilirubin 0.3 H (0.0-0.2) mg/dL AST (15-37) U/L ALT (12-78) U/L Alkaline Phosphatase (46-116) IU/L Troponin I High Sens (<=51) ng/L C-Reactive Protein (<=0.9) mg/dL Total Protein (6.4-8.2) g/dL Albumin (3.4-5.0) g/dL TSH, Ultra Sensitive (0.358-3.740) mIU/mL Specimen Type Urincc Urine Color Yellow Urine Appearance Slightly cloudy Urine pH 5.5 (5.0-9.0) Ur Specific [place] <= 1.005 (1.005-1.030) Urine Protein Negative (NEGATIVE) mg/dL Urine Glucose (UA) Negative (NEGATIVE) mg/dL Urine Ketones Negative (NEGATIVE) mg/dL Urine Occult Blood Negative (NEGATIVE) Urine Nitrite Negative (NEGATIVE) Urine Bilirubin Negative (NEGATIVE) Urine Urobilinogen 0.2 (0.2-1.0) E.U./dL Ur Leukocyte Esterase Trace H (NEGATIVE) Urine RBC 0-5 /HPF Urine WBC 0-5 /HPF Ur Epithelial Cells Rare /LPF Urine Bacteria Moderate H (NONE TO FEW) /HPF 10/31/21 10/31/21 Range/Units 07:29 07:29 WBC (4.0-10.2) K/uL RBC (3.77-5.09) M/uL Hgb (11.7-15.5) g/dL Hct (34.0-46.0) % MCV (84.0-98.0) fL MCH (28.2-33.3) pg MCHC (31.7-36.0) g/dL RDW (11.2-14.1) % Plt Count (150-350) K/uL Neut % (Auto) (45.0-80.0) % Lymph % (Auto) (10.0-50.0) % Haskell % (Auto) (2.0-14.0) % Eos % (Auto) (0.0-5.0) % Baso % (Auto) (0.0-2.0) % Neut # (Auto) (1.40-7.00) K/uL Lymph # (Auto) (0.50-3.50) K/uL Haskell # (Auto) (0.00-1.00) K/uL Eos # (Auto) (0.00-0.50) K/uL Baso # (Auto) (0.00-0.20) K/uL PT (9.6-11.3) SEC INR APTT (23.6-29.8) SEC D-Dimer, Quantitative (0-400) ng/mL VBG pH (7.31-7.41) VBG pCO2 (41-51) mmHG VBG pO2 mmHG VBG HCO3 (23-28) mmol/L VBG Total CO2 mmol/L VBG O2 Saturation % VBG Base Excess ((-2)-3) mmol/L O2 Delivery Device Oxygen Flow Rate L/min Sodium 138 (136-145) mmol/L Potassium 4.3 (3.5-5.1) mmol/L Chloride 100 (98-107) mmol/L Carbon Dioxide 26.3 (21.0-32.0) mmol/L Anion Gap 11.7 (7-15) meq/L BUN 34 H (7-18) mg/dL Creatinine 1.24 H (0.51-1.17) mg/dL Est Cr Clr Drug Dosing 30.05 mL/min Estimated GFR (MDRD) 42 mL/min Glucose 142 H (70-99) mg/dL Lactic Acid (0.4-2.0) mmol/L Calcium 9.4 (8.5-10.1) mg/dL Magnesium (1.8-2.4) mg/dL Total Bilirubin 0.7 (0.2-1.0) mg/dL Direct Bilirubin (0.0-0.2) mg/dL AST 38 H (15-37) U/L ALT 46 (12-78) U/L Alkaline Phosphatase 77 (46-116) IU/L Troponin I High Sens (<=51) ng/L C-Reactive Protein 6.2 H (<=0.9) mg/dL Total Protein 7.1 (6.4-8.2) g/dL Albumin 3.4 (3.4-5.0) g/dL TSH, Ultra Sensitive (0.358-3.740) mIU/mL Specimen Type Urine Color Urine Appearance Urine pH (5.0-9.0) Ur Specific [place] (1.005-1.030) Urine Protein (NEGATIVE) mg/dL Urine Glucose (UA) (NEGATIVE) mg/dL Urine Ketones (NEGATIVE) mg/dL Urine Occult Blood (NEGATIVE) Urine Nitrite (NEGATIVE) Urine Bilirubin (NEGATIVE) Urine Urobilinogen (0.2-1.0) E.U./dL Ur Leukocyte Esterase (NEGATIVE) Urine RBC /HPF Urine WBC /HPF Ur Epithelial Cells /LPF Urine Bacteria (NONE TO FEW) /HPF Med Orders - Current: Current Medications Acetaminophen (Acetaminophen 325 Mg Tab) 650 mg PO Q4H PRN PRN Reason: Pain (Mild 1-3)/fever Albuterol/Ipratropium (Albuterol/Ipratropium 3.0-0.5 Mg/3 Ml Neb Soln) 3 ml INH Q4HRRT [facility] Last Admin: 10/31/21 07:56 Dose: 3 ml Documented by: Arformoterol Tartrate (Arformoterol 15 Mcg/2 Ml Neb Soln) 15 mcg INH BIDRT [facility] Last Admin: 10/31/21 07:56 Dose: 15 mcg Documented by: Benzonatate (Benzonatate 100 Mg Cap) 200 mg PO BID PRN PRN Reason: Cough Last Admin: 10/30/21 19:41 Dose: 200 mg Documented by: Dexamethasone (Dexamethasone 2 Mg Tab) 6 mg PO DAILY [facility] Last Admin: 10/31/21 07:56 Dose: 6 mg Documented by: Enoxaparin Sodium (Enoxaparin 40 Mg/0.4 Ml Syringe) 40 mg SUBCUT DAILY [facility] Last Admin: 10/31/21 07:56 Dose: 40 mg Documented by: Furosemide (Furosemide 40 Mg Tab) 40 mg PO DAILY [facility] Last Admin: 10/31/21 07:57 Dose: 40 mg Documented by: Remdesivir 100 mg/ Sodium (Chloride) 100 mls @ 100 mls/hr IV Q24H [facility] Stop: 11/02/21 15:59 Indomethacin (Indomethacin 25 Mg Cap) 50 mg PO TID PRN PRN Reason: gout Last Admin: 10/30/21 19:41 Dose: 50 mg Documented by: Lisinopril (Lisinopril 5 Mg Tab) 2.5 mg PO DAILY [facility] Last Admin: 10/31/21 07:57 Dose: 2.5 mg Documented by: Loperamide HCl (Loperamide 2 Mg Tab) 4 mg PO Q6H PRN PRN Reason: Diarrhea Metoprolol Succinate (Metoprolol Succinate 25 Mg Tab.Er) 12.5 mg PO BEDTIME [facility] Last Admin: 10/30/21 19:42 Dose: 12.5 mg Documented by: Omeprazole (Omeprazole 20 Mg Cap.Cr) 40 mg PO ACBREAKFAST [facility] Last Admin: 10/31/21 07:57 Dose: 40 mg Documented by: Ondansetron HCl (Ondansetron 4 Mg Tab.Dis) 4 mg PO Q4H PRN PRN Reason: Nausea/Vomiting Last Admin: 10/30/21 21:23 Dose: 4 mg Documented by: Potassium Chloride (Potassium Chloride 10 Meq Tab.Er) 20 meq PO BID [facility] Last Admin: 10/31/21 07:56 Dose: 20 meq Documented by: Sodium Chloride (Sodium Chloride 0.9% 10 Ml Syringe) 10 ml FLUSH ASDIRECTED PRN PRN Reason: PER FACILITY PROTOCOL Sodium Chloride (Sodium Chloride 0.9% 10 Ml Syringe) 30 ml FLUSH DAILY@1600 [facility] Stop: 11/03/21 16:01 Discontinued Medications Remdesivir 200 mg/ Sodium (Chloride) 250 mls @ 250 mls/hr IV ONETIME ONE Stop: 10/30/21 20:59 Last Admin: 10/30/21 21:24 Dose: 250 mls/hr Documented by: Iopamidol (Iopamidol 755 Mg/Ml 100 Ml Bottle) 100 ml IVPUSH ONETIME STA Stop: 10/30/21 20:03 Last Admin: 10/30/21 21:00 Dose: 100 ml Documented by: Potassium Chloride (Potassium Chloride 20 Meq Tab.Er) 40 meq PO ONETIME ONE Stop: 10/30/21 19:39 Last Admin: 10/30/21 23:28 Dose: Not Given Documented by: Potassium Chloride (Potassium Chloride 20 Meq Tab.Er) Confirm Administered Dose 40 meq .ROUTE .STK-MED ONE Stop: 10/30/21 23:13 Last Admin: 10/30/21 23:28 Dose: 40 meq Documented by:
[2021-10-31] MEDS: REMDESIVIR 100 MG in Sodium Chloride 0.9% 100 ML IV SCH ×2 (15:15→15:17)
[2021-10-31] MEDS ORDERED: Sodium Chloride 0.9% 10 ML Syringe FLUSH SCH (16:00)
[2021-10-31 16:22] VITALS: BP 138/62; PULSE 82
== END 2021-10-31 16:50 | disposition home or self-care (01) | DRG 178 ==
LOC: LL.MS 17:23
PROVIDERS: ADMIT Nurse Practitioner Family; ATTEND Nurse Practitioner Family
PROC: XW033E5 Introduction of Remdesivir Anti-infective into Peripheral Vein, Percutaneous Approach, New Technology Group 5 (ICD-10-PCS; principal; 2021-10-30)
PROC: 8E0ZXY6 Isolation (ICD-10-PCS; 2021-10-30)
PROC: 3E0DX3Z Introduction of Anti-inflammatory into Mouth and Pharynx, External Approach (ICD-10-PCS; 2021-10-31)
DX: U07.1 COVID-19 (principal); A08.39 Other viral enteritis; J44.9 Chronic obstructive pulmonary disease, unspecified; I10 Essential (primary) hypertension; E87.6 Hypokalemia; R79.89 Other specified abnormal findings of blood chemistry; Z79.899 Other long term (current) drug therapy; Z79.82 Long term (current) use of aspirin; Z88.1 Allergy status to other antibiotic agents; Z88.6 Allergy status to analgesic agent; Z91.040 Latex allergy status; Z88.2 Allergy status to sulfonamides; Z91.09 Other allergy status, other than to drugs and biological substances; H54.7 Unspecified visual loss; I11.0 Hypertensive heart disease with heart failure; I50.9 Heart failure, unspecified; K21.9 Gastro-esophageal reflux disease without esophagitis; M19.90 Unspecified osteoarthritis, unspecified site; E66.9 Obesity, unspecified
CPT/HCPCS: 36415; 71045; 71275; 80053; 81001; 82248; 82803; 83605; 83735; 84443; 84484; 85025; 85379; 85610; 85730; 86140; 87040; 93005; 94640; 94761; 99223; A9270-GY; J1650; J7050; J7620-GY; J8540; Q9967

== ENCOUNTER 2021-12-25 12:22 | Day surgery (SDC) | payer MEDICARE, OTHER ==
[2021-12-25] MEDS ORDERED: Sodium Chloride 0.9% 10 ML Syringe FLUSH SCH (12:30)
[2021-12-25] MEDS ORDERED: Propofol 200 MG/20 ML SDV ONE ×2 (12:49→12:52)
[2021-12-25] MEDS ORDERED: Midazolam 1 MG/ML 2 ML SDV ONE ×2 (12:49→12:52)
[2021-12-25] MEDS ORDERED: Glycopyrrolate 0.2 MG/ML SDV ONE (12:52)
[2021-12-25] MEDS ORDERED: Lidocaine 2% 100 MG/5 ML Syringe ONE (12:52)
[2021-12-25] MEDS: Lactated Ringers 1,000 ML IV SCH (13:11)
[2021-12-25] MEDS: Albuterol 0.083% 2.5 MG/3 ML Neb Soln NEB ONE (13:51)
[2021-12-25 17:57] VITALS: PULSE 83
[2021-12-25 17:59] VITALS: BP 126/67
== END 2021-12-25 15:27 | disposition home or self-care (01) ==
LOC: LL.SDS 12:22
PROVIDERS: ATTEND Surgery
DX: K22.70 Barrett's esophagus without dysplasia (principal); K44.9 Diaphragmatic hernia without obstruction or gangrene; E78.5 Hyperlipidemia, unspecified; J44.1 Chronic obstructive pulmonary disease with (acute) exacerbation; I11.0 Hypertensive heart disease with heart failure; K21.9 Gastro-esophageal reflux disease without esophagitis; I50.9 Heart failure, unspecified; Z79.899 Other long term (current) drug therapy
CPT/HCPCS: 94640; J2250; J2704; J3490; J7120; J7613-GY